=== PATIENT | female | born 1990 | race Caucasian/White ===

== ENCOUNTER 2016-12-26 23:18 | Emergency (ER) | payer SELFPAY ==
--- NOTE | ~2016-12-26 | ER ---
[facility] AGE[facility] 26 Y [address] ROOM: [place] [address] LOCATION: [facility] ADMIT DATE: 12/26/2016 ER/Outpatient Report DISCHARGE DATE: 12/27/2016 FAMILY PHYSICIAN: PHYSICIAN, NO ATTENDING PHYSICIAN: Eben Ward Admission date and time are documented in the medical record. I saw the patient at 2335 hours. CHIEF COMPLAINT: Right arm pain. HISTORY OF PRESENT ILLNESS: This patient is a 26-year-old female who comes in with a 5-day history of worsening right arm pain. Worst pain was tonight. Her pain is pretty much in her upper arm and shoulder. She feels like her upper arm is tight and swollen. Movement causes pain. No chest pain or shortness of breath. No headache, eyes, ears, nose, throat, neck, or spine pain. No fever, chills, sweats. No coughs, colds, flus. No lightheadedness, dizziness. No fall or trauma. She has been doing some moving, pushing, pulling, and lifting. No abdominal pain, nausea, vomiting, diarrhea, or urinary complaints. No other joint or muscle swelling, redness, or pain other than the right upper arm and shoulder. No skin eruptions or rash. No neuro changes, psych issues, or endocrine problems. The patient did have a blood clot in the right shoulder. HOME MEDICATIONS: None. ALLERGIES: NONE. SOCIAL HISTORY: The patient smokes about 2 cigarettes a day and nondrinker. SIGNIFICANT PAST MEDICAL HISTORY: Tobacco usage, DVT, right shoulder. OPERATIONS: None. REVIEW OF SYSTEMS: All systems reviewed by me are negative with the exception of those discussed in the history of present illness. PHYSICAL EXAMINATION: [facility] AGE: 26 Y [address] ROOM: [place] [address] LOCATION: [facility] ADMIT DATE: 12/26/2016 ER/Outpatient Report DISCHARGE DATE: 12/27/2016 FAMILY PHYSICIAN: PHYSICIAN, NO ATTENDING PHYSICIAN: Eben Ward VITAL SIGNS: Temperature 97.8, tympanic, pulse 91, respirations 18, blood pressure 136/70, and O2 sat on room air is 98%. HEAD: Normocephalic. EYES, EARS, NOSE, THROAT: Clear. Mucous membranes moist. NECK: No nuchal rigidity. No thyromegaly or cervical adenopathy. No carotid bruits. LUNGS: Clear. HEART: Regular. ABDOMEN: Soft, nontender. Good bowel tones. No organomegaly or abnormal mass palpable. No CVA tenderness. EXTREMITIES: Restricted range of motion to the right upper extremity. Upper arm is little bit swollen, tender, tender over the bicipital groove, deltoid, and the whole shoulder girdle. Decreased range of motion. NEUROVASCULAR: Intact. Pulse intact. Capillary refill intact. No open wounds. SKIN: Clear. No rashes. LABORATORY DATA: Venous Doppler of the right arm was negative for DVT. See Radiology report. White count was 13,400, 43 segs, 1 band, 51 lymphs, 3 monos, 2 eos, hemoglobin is 14.4 with hematocrit 42.6, and platelet count is 292,000. Sed rate is normal at 17, PTT is 31, pro-time is 10.7, INR 1.02. CRP was 3.66. D-dimer was 0.61. X-ray of the right shoulder showed no fracture, dislocation, separation, or other abnormalities. We will review x-ray with the radiologist. EMERGENCY DEPARTMENT COURSE: I did give the patient morphine IV for pain, Toradol 30 mg IV for pain, and Solu-Medrol 125 mg for pain. The patient is discharged home. Observation. Activity as tolerated. Ice to the right shoulder aggressively over the next 72 hours. Right arm sling. Prednisone 30 mg b.i.d. for 7 days. [place] 7.5/325 as needed for pain #20. Toradol 10 mg 1 every 6 hours x12 doses. Follow up with personal physician in 5 to 7 days or sooner if needed. Discussion ensued with the patient concerning my findings and recommendations, she understands. MD ABHI MATHEW/modl /[id number] d: 12/27/16 0601 t: 01/01/17 1814, OUTPATIENT REPORT
--- NOTE | ~2016-12-26 | ENPV ---
Vascular Upper Extremities Veins Procedure Demographics Patient Name JOSE ANGEL GARCIA Date of Study 12/27/2016 Patient Number [id number] Gender Female Date of 1990 Age 26 Visit Number [id number] Height Accession Number [id number] Weight Room Number BSA BMI Referring Interpreting Denis Marti MD Physician Physician Physician Ordering Physician Sylvia Bello [place] [employer] Staffing Associate Dom Farah T, [facility] Conclusions Summary Normal right upper extremity venous duplex. Procedure Type of Study: Veins:Upper Extremities Veins, Upper Extremity Right. Indications for Study:Pain. Appropriate Use Criteria:6 Patient Status:STAT. Study Location:ER. Technical Quality:Good visualization. Velocities are measured in cm/s ; Diameters are measured in cm Right UE Vein Measurements 2D and Doppler Measurements + + + + +--------+--------+ !Location !Visualized !Compressibility !Thrombosis !Signal !Reflux ! + + + + +--------+--------+ !IJV !Yes !Yes !None !Phasic ! ! + + + + +--------+--------+ !SCV !Yes !Yes !None !Phasic ! ! + + + + +--------+--------+ !Innominate !Yes !Yes !None !Phasic ! ! + + + + +--------+--------+ !Axillary !Yes !Yes !None !Phasic ! ! + + + + +--------+--------+ !Brachial !Yes !Yes !None !Phasic ! ! + + + + +--------+--------+ !Radial !Yes !Yes !None !Phasic ! ! + + + + +--------+--------+ !Ulnar !Yes !Yes !None !Phasic ! ! + + + + +--------+--------+ !Basilic !Yes !Yes !None !Phasic ! ! + + + + +--------+--------+ !Cephalic !Yes !Yes !None !Phasic ! ! + + + + +--------+--------+ Left UE Vein Measurements 2D and Doppler Measurements + + + + +--------+ + !Location !Visualized !Compressibility !Thrombosis !Signal !Reflux ! + + + + +--------+ + !IJV !Yes !Yes !None !Phasic ! ! + + + + +--------+ + Signature dtt: YESSENIA BLANCO dtayse: 12/27/16 0007 Physician Self Edit
[2016-12-27 00:04] LABS: HEMATOCRIT 42.6 % (33.0-46.0); HEMOGLOBIN 14.4 g/dL (11.0-15.0); MCH 30.4 pg (27.0-34.0); MCHC 33.8 gm/dL (32.0-36.5); MCV 90.1 fl (83.0-98.0); MPV 10.1 fl (9.4-12.4); PLATELET COUNT 292 K/uL (150-450); RBC 4.73 M/uL (3.50-5.00); RDW-CV 12.2 % (11.9-14.6); WBC 13.4 K/uL (4.0-11.0)
[2016-12-27 00:16] LABS: INR - (THERAPEUTIC) 1.02 (0.92-1.07); PROTIME 10.7 SECONDS (9.8-11.4); PTT 31 SECONDS (25-32)
[2016-12-27 00:24] LABS: ALBUMIN 4.3 gm/dL (3.5-5.0); CALCIUM 8.7 mg/dL (8.5-10.5); CREATININE 0.9 mg/dL (0.5-1.1); TOTAL BILIRUBIN 0.3 mg/dL (0.0-1.5); TOTAL PROTEIN 8.4 g/dL (6.0-8.4)
[2016-12-27 00:25] LABS: ANION GAP 14.9 (10.0-19.0); POTASSIUM 3.9 mMol/L (3.7-5.1)
[2016-12-27 00:47] LABS: ABSOLUTE NEUTROPHIL CT (ANC) 5.9 K/uL (1.8-7.8); BANDED NEUTROPHIL # 0.1 K/uL (0.0-0.1); BANDED NEUTROPHILS % 1 %; LYMPHOCYTE # 6.8 K/uL (0.8-4.0); LYMPHOCYTE % 51 %; MONOCYTE # 0.4 K/uL (0.0-1.0); SEGMENTED NEUTROPHIL # 5.8 K/uL (1.8-7.8); SEGMENTED NEUTROPHIL % 43 %
== END 2016-12-27 01:26 | disposition disaster alternative care site (69) ==
LOC: GMED 23:18
PROVIDERS: Emergency Medicine
DX: M79.89 Other specified soft tissue disorders (principal); F17.210 Nicotine dependence, cigarettes, uncomplicated; Z86.718 Personal history of other venous thrombosis and embolism; Z79.1 Long term (current) use of non-steroidal anti-inflammatories (NSAID); Z79.899 Other long term (current) drug therapy
CPT/HCPCS: J1885; J2270; J2930